=== PATIENT | male | born 1975 | race Two or more races ===

== ENCOUNTER 2019-01-29 17:43 | Emergency (ER) | payer OTHER ==
[~2019-01-29] VITALS: Ht 167.6 cm; Wt 120.2 kg
[~2019-01-29 17:43] MED LIST: FIORICET 50-321 EACH PO
== END 2019-01-29 21:27 | disposition home or self-care (01) ==
LOC: ER 17:43
DX: M94.0 Chondrocostal junction syndrome [Tietze] (principal)

== ENCOUNTER 2022-01-21 14:20 | Emergency (ER) | payer OTHER ==
[~2022-01-21] VITALS: Ht 167.6 cm; Wt 104.3 kg
[2022-01-21] MEDS ORDERED: ZESTRIL40 M1 PO (15:49)
[2022-01-21] MEDS ORDERED: PEPCID AC20 MG PO (19:33)
== END 2022-01-21 19:48 | disposition home or self-care (01) ==
LOC: ER 14:20
DX: K52.9 Noninfective gastroenteritis and colitis, unspecified (principal); Z20.822 Contact with and (suspected) exposure to COVID-19

== ENCOUNTER 2023-10-13 09:56 | Emergency (ER) | payer OTHER ==
[~2023-10-13] VITALS: Ht 167.6 cm; Wt 104.3 kg
[~2023-10-13 09:56] MED LIST changes: +PEPCID AC20 MG PO; +ZESTRIL40 M1 PO
[2023-10-13 10:42] VITALS: BP 136/93; O2SAT 99
[2023-10-13 11:54] LABS: HEMATOCRIT 44.4 % (39.0-48.0); HEMOGLOBIN 15.1 g/dL (13-16.00); MEAN CORPUSCULAR HEMOGLOBIN 31.7 pg (27.00-32.0); MEAN CORPUSCULAR HGB CONC 34.1 g/dl (32.0-36.0); PLATELET COUNT 222 K/uL (150-450); RED BLOOD COUNT 4.78 M/uL (4.00-6.00); RED CELL DISTRIBUTION WIDTH 13.3 % (11.5-14.5)
[2023-10-13 12:17] LABS: URINE APPEARANCE Clear; URINE BILIRRUBIN Negative (NEGATIVE); URINE BLOOD Negative; URINE COLOR Yellow; URINE GLUCOSE Negative (NEGATIVE); URINE KETONE Trace (NEGATIVE); URINE LEUKOCYTE Negative; URINE NITRATE Negative; URINE PROTEIN Negative (NEGATIVE); URINE UROBILINOGEN 0.2 E.U./dl
[2023-10-13 12:19] LABS: URINE BACTERIA 7.5 uL (0.0-1933); URINE EPITHELIAL CELLS 5.2 uL (0.0-38.8); URINE RBC 8.2 uL (0.0-20.8); URINE WBC 8.4 uL (0.0-23.2)
[2023-10-13 12:29] LABS: CALCIUM 9.6 mg/dL (8.5-10.1); CREATININE SERUM 1.07 mg/dL (0.70-1.30); GFR 74.4; POTASSIUM 4.46 mEq/L (3.5-5.1)
[2023-10-13] MEDS ORDERED: MAGNESIUM HYDROXIDE 30 ML BLIST.PACK PO STA (14:30)
[2023-10-13] MEDS ORDERED: LACTULOSE 20 G/30 ML BLIST.PACK PO STA (14:30)
[2023-10-13] MEDS ORDERED: LACTULOSE 20 G/30 ML BLIST.PACK ONE (14:35)
[2023-10-13] MEDS ORDERED: MAG HYDROX/ALUMINUM HYD/SIMETH 30 ML BLIST.PACK PO ONE (14:35)
== END 2023-10-13 14:40 | disposition home or self-care (01) ==
LOC: ER 09:57
PROVIDERS: General Practice
DX: K59.00 Constipation, unspecified (principal); I10 Essential (primary) hypertension; Z88.8 Allergy status to other drugs, medicaments and biological substances